=== PATIENT | female | born 1950 | race Caucasian/White ===

== ENCOUNTER → 2023-10-20 | Outpatient (CLI) | payer MEDICARE ==
[~2023-10-20] MED LIST: IOHEXOL-350 75 ML VIAL IV ONE
== END | disposition home or self-care (01) ==
LOC: RAH 09:56
PROVIDERS: ATTEND Family Medicine
DX: I65.21 Occlusion and stenosis of right carotid artery (principal); H93.A2 Pulsatile tinnitus, left ear; R23.0 Cyanosis; I67.1 Cerebral aneurysm, nonruptured
CPT/HCPCS: 70496; 70498; Q9967